=== PATIENT | male | born 1970 | race Caucasian/White ===

== ENCOUNTER 2017-03-08 11:51 | Emergency (ER) | payer OTHER ==
[2017-03-08 12:03] VITALS: BP 151/105
--- NOTE | 2017-03-08 12:22 | UC ---
Abdominal Pain Male HPI - HPI Summary HPI Summary: 19 year history with ulcerative colitis, Comes today with same symptoms of past flare rlq discomfort and diarrhea with some bisi blood present, no fevers, chills, nausea or vomiting - History of Current Complaint Chief Complaint: UCGI Stated Complaint: DIARRHEA WITH BLOOD Time Seen by Provider: 03/08/17 12:07 Hx Obtained From: Patient Onset/Duration: Sudden Onset, Still Present Timing: Constant Severity Initially: Mild Severity Currently: Moderate Location: Discrete At: RLQ Radiates: No Character: Cramping Aggravating Factor(s):: Nothing Alleviating Factor(s): Nothing Associated Signs And Symptoms: Positive: Blood in Stool, Diarrhea - Allergies/Home Medications Allergies/Adverse Reactions: Allergies Allergy/AdvReac Type Severity Reaction Status Date / Time Penicillins Allergy Hives Verified 03/08/17 11:58 PMH/Surg Hx/FS Hx/Imm Hx Previously Healthy: No GI/ History: Other Other GI/ History: ulcerative colitis - Surgical History Surgical History: Yes Surgery Procedure, Year, and Place: vasectomy - Family History Known Family History: Positive: None - Social History Occupation: Employed Full-time Lives: With Family Alcohol Use: Daily Alcohol Amount: couple beers a night Substance Use Type: None Smoking Status (MU): Never Smoked Tobacco Review of Systems Constitutional: Negative Skin: Negative Eyes: Negative ENT: Negative Respiratory: Negative Cardiovascular: Negative Gastrointestinal: Abdominal Pain, Diarrhea Genitourinary: Negative Motor: Negative Neurovascular: Negative Musculoskeletal: Negative Neurological: Negative Psychological: Negative All Other Systems Reviewed And Are Negative: Yes Physical Exam Triage Information Reviewed: Yes Appearance: Well-Appearing, No Pain Distress, Well-Nourished Vital Signs: Initial Vital Signs Temp 97.9 F 03/08/17 11:59 Pulse 75 03/08/17 11:59 Resp 16 03/08/17 11:59 BP 151/105 03/08/17 11:59 Pulse Ox 100 03/08/17 11:59 Vital Signs Reviewed: Yes Eye Exam: Normal Eyes: Positive: Conjunctiva Clear ENT Exam: Normal ENT: Positive: Normal ENT inspection, Hearing grossly normal, Pharynx normal, TMs normal. Negative: Nasal congestion, Nasal drainage, Trismus, Muffled/ hoarse voice Dental Exam: Normal Neck exam: Normal Neck: Positive: Supple, Nontender Respiratory Exam: Normal Respiratory: Positive: Chest non-tender, Lungs clear, Normal breath sounds, No respiratory distress, No accessory muscle use Cardiovascular Exam: Normal Cardiovascular: Positive: RRR, Pulses Normal, Brisk Capillary Refill Abdominal Exam: Normal Abdomen Description: Positive: No Organomegaly, Soft. Negative: CVA Tenderness (R), CVA Tenderness (L), Distended, Guarding Bowel Sounds: Positive: Present Musculoskeletal Exam: Normal Musculoskeletal: Positive: Strength Intact, ROM Intact, No Edema Neurological Exam: Normal Neurological: Positive: Alert, Muscle Tone Normal Psychological Exam: Normal Psychological: Positive: Normal Response To Family Skin Exam: Normal Abd Pain Male Course/Dx - Course Course Of Treatment: unable to afford medication used in the past will rx prednisone, reviewed case with Dr. Recinos who agrees with treatment, to ED for worsening pain, bleeding or sx, follow wi pcp and GI - Differential Dx/Clinical Impression Differential Diagnosis/HQI/PQRI: Appendicitis, Ischemic Bowel, Other - colitis, ulcerative colitis Provider Diagnoses: Ulcerative Colitis Discharge - Discharge Plan Condition: Stable Disposition: HOME Prescriptions: Mesalamine [Asacol Hd] 800 mg PO BID #60 tab predniSONE TAB* [Deltasone TAB*] 60 mg PO DAILY #42 tab Patient Education Materials: Ulcerative Colitis (ED), Abdominal Pain (ED) Referrals: [facility] [Provider Group] - 1 Week [facility]ERR[facility] [Outside] - 1 Week
== END 2017-03-08 12:34 | disposition home or self-care (01) ==
LOC: UCEAST 11:51
DX: K51.90 Ulcerative colitis, unspecified, without complications (principal); Z88.0 Allergy status to penicillin
CPT/HCPCS: 99202; G0463

== ENCOUNTER 2017-07-25 08:21 | Emergency (ER) | payer OTHER ==
[2017-07-25 08:46] VITALS: BP 153/103
--- NOTE | 2017-07-25 09:13 | UC ---
Respiratory Complaint HPI - HPI Summary HPI Summary: 2 WEEKS OF COUGH, SINUS PRESSURE, CONGESTION. FEELS TIGHT. HAS BRONCHITIS. HAS FELT WORSE OVER PAST FEW DAYS. NO FEVER, ST , EAR PAIN, N/V/D. - History of Current Complaint Chief Complaint: UCRespiratory Stated Complaint: FEVER,COUGH Time Seen by Provider: 07/25/17 09:09 Hx Obtained From: Patient Onset/Duration: Gradual Onset, Lasting Days, Still Present Timing: Constant Severity Initially: Moderate Severity Currently: Moderate Pain Intensity: 6 Pain Scale Used: 0-10 Numeric Character: Cough: Nonproductive Aggravating Factors: Nothing Alleviating Factors: Nothing Associated Signs And Symptoms: Positive: Pleuritic Chest Pain, URI, Nasal Congestion, Sinus Discomfort - Allergies/Home Medications Allergies/Adverse Reactions: Allergies Allergy/AdvReac Type Severity Reaction Status Date / Time Penicillins Allergy Hives Verified 07/25/17 08:29 Home Medications: Home Medications Cetirizine HCl [All Day Allergy] 07/25/17 [History] PMH/Surg Hx/FS Hx/Imm Hx Other GI/ History: SOLITARY KIDNEY, "COLITIS" - Surgical History Surgical History: Yes Surgery Procedure, Year, and Place: vasectomy - Family History Known Family History: Positive: Hypertension - Social History Alcohol Use: Daily Alcohol Amount: couple beers a night Substance Use Type: None Smoking Status (MU): Never Smoked Tobacco Review of Systems Constitutional: Fatigue ENT: Sore Throat, Nasal Discharge, Sinus Congestion Respiratory: Cough Cardiovascular: Negative Gastrointestinal: Negative Neurological: Headache All Other Systems Reviewed And Are Negative: Yes Physical Exam Triage Information Reviewed: Yes Appearance: No Pain Distress, Well-Nourished, Ill-Appearing - MOD Vital Signs: Initial Vital Signs Temp 99.1 F 07/25/17 08:30 Pulse 103 07/25/17 08:30 Resp 16 07/25/17 08:30 BP 153/103 07/25/17 08:30 Pulse Ox 98 07/25/17 08:30 Eyes: Positive: Conjunctiva Clear ENT: Positive: Hearing grossly normal, Pharynx normal, Nasal congestion, TMs normal Neck: Positive: Supple, Nontender, No Lymphadenopathy Respiratory Exam: Normal Cardiovascular Exam: Normal Abdomen Description: Positive: Soft Musculoskeletal: Positive: No Edema Neurological: Positive: Alert Psychological: Positive: Age Appropriate Behavior Skin: Negative: rashes UC Diagnostic Evaluation - Laboratory O2 Sat by Pulse Oximetry: 98 Respiratory Course/Dx - Differential Dx/Diagnosis Provider Diagnoses: ACUTE BRONCHITIS Discharge - Discharge Plan Condition: Stable Disposition: HOME Prescriptions: Azithromycin [Azithromycin 500 MG TAB] 500 mg PO DAILY #5 tab Guaifenesin-Codeine [Codeine/Guaifenesin 100-10 mg/5Ml] 5 - 10 ml PO Q6H PRN # 150 ml MDD 40ML PRN Reason: Cough predniSONE TAB* [Deltasone TAB*] 40 mg PO DAILY #10 tab Patient Education Materials: Acute Bronchitis (ED) Referrals: Zakia Rosen MD [Primary Care Provider] - If Needed Additional Instructions: YOUR SYMPTOMS MAY BE VIRALLY MEDIATED BUT GIVEN THE LENGTH OF TIME YOU HAVE BEEN ILL WE WILL COVER YOU WITH ANTIBIOTICS. IF YOU START THE MEDICINE BE SURE TO TAKE IT FOR THE FULL COURSE. REST, HYDRATE, OTC MEDS NEEDED. WILL ALSO TREAT WITH PREDNISONE TO HELP WITH AIRWAY INFLAMMATION AND COUGH MEDICINE. SEEK FOLLOW-UP WITH YOUR PCP IF YOU ARE NOT IMPROVING OVER THE NEXT 1-2 WEEKS.
== END 2017-07-25 09:31 | disposition home or self-care (01) ==
LOC: UCEAST 08:21
DX: J20.9 Acute bronchitis, unspecified (principal)
CPT/HCPCS: 99212; G0463

== ENCOUNTER 2018-05-21 11:28 | Emergency (ER) | payer OTHER ==
--- NOTE | 2018-05-21 11:46 | UC ---
Eye Complaint HPI - HPI Summary HPI Summary: 48 yo male presents with left eye itching, redness, and watering since this morning. He tells me that his has pink eye and he thinks he is starting to have symptoms too. He applied a drop of his 's anbx eye drops to his eye and felt better a bit later. He does not wear glasses or contacts. Denies injury to eye or FB in eye. - History of Current Complaint Stated Complaint: EYE ISSUE Time Seen by Provider: 05/21/18 11:46 Hx Obtained From: Patient Onset/Duration: Sudden Onset Severity Initially: Moderate Severity Currently: Moderate Pain Intensity: 5 Pain Scale Used: 0-10 Numeric - Allergies/Home Medications Allergies/Adverse Reactions: Allergies Allergy/AdvReac Type Severity Reaction Status Date / Time Penicillins Allergy Hives Verified 05/21/18 11:48 Home Medications: Home Medications Tobramycin 0.3% OPHTH.JAKE* 1 drop OPHTHALMIC ONCE 05/21/18 [History Confirmed ] PMH/Surg Hx/FS Hx/Imm Hx - Additional Past Medical History Additional PMH: Ulcerative Colitis - Surgical History Surgical History: Yes Surgery Procedure, Year, and Place: vasectomy - Family History Known Family History: Positive: Hypertension - Social History Occupation: Employed Full-time Lives: With Family Alcohol Use: Daily Alcohol Amount: couple beers a night Substance Use Type: None Smoking Status (MU): Never Smoked Tobacco Review of Systems Constitutional: Negative Skin: Negative Eyes: Drainage, Eye Redness ENT: Negative Respiratory: Negative Cardiovascular: Negative Neurovascular: Negative Neurological: Negative Psychological: Negative All Other Systems Reviewed And Are Negative: Yes Physical Exam - Summary Physical Exam Summary: GENERAL: WDWN. No pain distress. SKIN: No rashes, sores, lesions, or open wounds. HEENT: Head: AT/NC Eyes: EOM intact. PERRLA. LEFT EYE: Mild scleral injection. Conjunctiva with mild erythema and inflammation. Mild clear discharge. RIGHT EYE : Conjunctiva clear without inflammation or discharge. No FBs appreciated Nose: NTTP maxillary and frontal sinus. NECK: Supple. Nontender. No lymphadenopathy. CHEST: No accessory muscle use. Breathing comfortably and in no distress. CV: Pulses intact. Cap refill <2seconds NEURO: Alert. PSYCH: Age appropriate behavior. Triage Information Reviewed: Yes Vital Signs: Vital Signs: Temp Pulse Resp BP Pulse Ox 97.7 F 85 18 137/78 98 05/21/18 11:44 05/21/18 11:44 05/21/18 11:44 05/21/18 11:44 05/21/18 11:44 Vital Signs Reviewed: Yes Eye Complaint Course/Dx - Course Course Of Treatment: Left eye conjunctivitis - Differential Dx/Diagnosis Provider Diagnoses: Left eye conjunctivitis Discharge - Sign-Out/Discharge Documenting (check all that apply): Patient Departure All imaging exams completed and their final reports reviewed: No Studies - Discharge Plan Condition: Stable Disposition: HOME Prescriptions: Polymyx/Trimethoprim OPTH* [Polytrim OPHTH*] 1 drop LEFT EYE QID #1 btl Patient Education Materials: Conjunctivitis (ED) Referrals: Zakia Rosen MD [Primary Care Provider] - Additional Instructions: If you develop a fever, shortness of breath, chest pain, new or worsening symptoms - please call your PCP or go to the ED. - Billing Disposition and Condition Condition: STABLE Disposition: Home
[2018-05-21 11:48] VITALS: BP 137/78
== END 2018-05-21 12:10 | disposition home or self-care (01) ==
LOC: UCEAST 11:28
DX: H10.9 Unspecified conjunctivitis (principal); Z88.0 Allergy status to penicillin
CPT/HCPCS: 99212; G0463

== ENCOUNTER 2018-10-17 09:45 | Emergency (ER) | payer OTHER ==
--- OUTSIDE RECORDS SUMMARY | 2018-10-17 09:51 | XMS REPORT | Continuity of Care Document ---
:1970 External Reference #:[id number] Author Name Marylou Dial PA-C Address [address] [place] [address] [place] [address] Care Team Providers Name Role Phone Fernando Tineo MD Care Team Information Shingles Roofer Helper Unavailable Fernando Tineo MD Primary Care Physician Unavailable Payers Date Identification Numbers Payment Provider Subscriber Policy Number: [id number] Laura Evans Group Number: [id number] [address] PayID: [id number] [place] [address] Advance Directives Description No Information Available Problems Date Description Provider Status Onset: 10/11/2018 Ulcerative colitis Marylou Dial PA-C Active Onset: 10/02/2018 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 Family History Description No Information Available Social History Type Date Description Comments Sex Unknown ETOH Use Consumes 2 beers per day ETOH Use Consumes liquor once daily Tobacco Use Start: Unknown Patient has never smoked Smoking Status Reviewed: 10/02/18 Patient has never smoked Allergies, Adverse Reactions, Alerts Date Description Reaction Status Severity Comments 03/15/2017 Penicillin Active Medications Medication Date Status Form Strength Qnty SIG Indications Ordering Provider Mesalamine Active Tablets DR 1.2gm 180tab take 2 Jeannette 019 s tablets by Cesar mouth once MD medina a day VSL#3 Active Capsules 60caps take twice Orly 017 daily by abilio Morrow [employer] Mesalamine Hx Tablets DR 1.2gm 180tab Take 2 Jeannette 019 - s Tablets By Cesar Abilio haney MD 019 Once Daily Lialda Hx Tablets DR 1.2gm 180tab take 2 Marylou L. 017 - s tablets by Jayro, mouth once NEGRITO 019 daily Colyte-Flavor Hx Solution 240gm 4000ml As K51.911 Orly Packs 017 - Rec directed [place], [employer]C 017 Prednisone 00/00/0 Hx Tablets 20mg as Unknown 000 - directed 017 Lialda 00/00/0 Hx 2 a day Unknown 000 - 017 Immunizations Description No Information Available Vital Signs Date Vital Result Comment 10/02/2018 10:42am Height 71 inches 5'11" Weight 221.00 lb BP Systolic 160 mmHg BP Diastolic 94 mmHg Heart Rate 68 /min BMI (Body Mass Index) 30.8 kg/m2 09/12/2017 12:57pm Height 71 inches 5'11" Weight 230.00 lb BP Systolic 140 mmHg BP Diastolic 100 mmHg Heart Rate 76 /min BMI (Body Mass Index) 32.1 kg/m2 06/25/2017 12:48pm Height 71 inches 5'11" Weight 239.00 lb BP Systolic 140 mmHg BP Diastolic 100 mmHg Heart Rate 74 /min BMI (Body Mass Index) 33.3 kg/m2 04/23/2017 1:34pm Height 71 inches 5'11" Weight 234.00 lb BP Systolic 160 mmHg BP Diastolic 100 mmHg Heart Rate 96 /min BMI (Body Mass Index) 32.6 kg/m2 03/15/2017 1:05pm Height 71 inches 5'11" Weight 236.00 lb BP Systolic 150 mmHg BP Diastolic 120 mmHg Heart Rate 64 /min BMI (Body Mass Index) 32.9 kg/m2 Results Test Date Facility Test Result H/L Range Note CBC W/Auto 10/02/2018 [facility] Blood 4.8 3/UL 4.8-10.8 Differential [address] Count Ser (!) [place] [address] Auto CNT [phone] RBC Red Blood Count 5.00 X106/UL 4.20-6.20 Hemoglobin Blood 16.1 g/dL 12.0-18.0 Hematocrit 46.5 % 35-52 MCV (Corpuscular Volume) 93.0 FL 79-97 MCH (Corpuscular Hemoglobin) 32.2 pg High 27-31 MCHC (Corpuscular Hemog Conc) 34.6 g/dL 32.0-36.0 RDW 11.5 % 10.5-15.0 Platelet Count Blood Auto CNT 205 X103/UL 150-450 MPV 8.3 FL 7.4-10.4 Lymph% 38.5 % 20.0-45.0 Deuel% 3.0 % 1.0-9.0 Neutrophil % 58.5 % 38.0-83.0 Absolute Lymphocytes 1.8 X103/UL 1.0-4.8 Absolute Monocytes 0.1 X103/UL 0.0-0.8 Absolute Neutrophils 2.8 X103/UL 1.5-7.7 Comp Metabolic Panel 10/02/2018 [facility] Sodium 138 mmol/L N 135-145 Potassium 4.1 mmol/L N 3.5-5.0 Chloride 104 mmol/L N 101-111 Co2 Carbon Dioxide 27 mmol/L N 22-32 Anion Gap 7 mmol/L N 2-11 Glucose 103 mg/dL High 70-100 Blood Urea Nitrogen 11 mg/dL N 6-24 Creatinine 0.82 mg/dL N 0.67-1.17 BUN/Creatinine Ratio 13.4 N 8-20 Calcium 9.4 mg/dL N 8.6-10.3 Total Protein 7.0 g/dL N 6.4-8.9 Albumin 4.7 g/dL N 3.2-5.2 Globulin 2.3 g/dL N 2-4 Albumin/Globulin Ratio 2.0 N 1-3 Total Bilirubin 1.60 mg/dL High 0.2-1.0 Alkaline Phosphatase 65 U/L N 34-104 Alt 30 U/L N 7-52 Ast 21 U/L N 13-39 Egfr Non- 101.1 >60 Egfr 122.4 >60 1 CBC W/Auto 09/12/2017 [facility] White 5.2 3/UL 4.8- 10.8 Differential(!) [address] [facility] [place] [address] Count Ser [phone] Auto CNT RBC Red Blood Count 5.08 X106/UL 4.20-6.20 Hemoglobin Blood 15.7 g/dL 12.0-18.0 Hematocrit 46.9 % 35-52 MCV (Corpuscular Volume) 92.4 FL 79-97 MCH (Corpuscular Hemoglobin) 30.9 pg 27-31 MCHC (Corpuscular Hemog Conc) 33.4 g/dL 32.0-36.0 RDW 12.8 % 10.5-15.0 Platelet Count Blood Auto CNT 173 X103/UL 150-450 MPV 8.9 FL 7.4-10.4 Lymph% 37.4 % 20.0-45.0 Deuel% 12.2 % High 1.0-9.0 Neutrophil % 50.4 % 38.0-83.0 Absolute Lymphocytes 1.9 X103/UL 1.0-4.8 Absolute Monocytes 0.6 X103/UL 0.0-0.8 Absolute Neutrophils 2.6 X103/UL 1.5-7.7 BMP W/O Egfr(!) 09/12/2017 [facility] Sodium(!) 136 mEq/L 120-161 [address] [place] [address] [phone] Potassium(!) 4.0 mEq/L 3.6-5.5 Chloride Serum/Plasma(!) 100 mEq/L 94-112 Carbon Dioxide Ser/Plasm(!) 26 mEq/L 21-33 BUN - Urea Nitrogen(!) 13 mg/dL 6-24 Calcium Ser/Plasma Mass/Vol(!) 8.8 mg/dL 8.6-10.2 Creatinine Serum Mass/Vol(!) 0.8 mg/dL 0.5-1.4 Glucose Serum(!) 99 mg/dL 70-105 CBC W/Auto 06/25/2017 [facility] White 5.6 3/UL 4.8- 10.8 Differential(!) [address] [facility] [place] [address] Count Ser [phone] Auto CNT RBC Red Blood Count 4.93 X106/UL 4.20-6.20 Hemoglobin Blood 16.0 g/dL 12.0-18.0 Hematocrit 46.6 % 35-52 MCV (Corpuscular Volume) 94.6 FL 79-97 MCH (Corpuscular Hemoglobin) 32.6 pg High 27-31 MCHC (Corpuscular Hemog Conc) 34.4 g/dL 32.0-36.0 RDW 12.4 % 10.5-15.0 Platelet Count Blood Auto CNT 182 X103/UL 150-450 MPV 9.1 FL 7.4-10.4 Lymph% 34.5 % 20.0-45.0 Deuel% 4.7 % 1.0-9.0 Neutrophil % 60.8 % 38.0-83.0 Absolute Lymphocytes 1.9 X103/UL 1.0-4.8 Absolute Monocytes 0.3 X103/UL 0.0-0.8 Absolute Neutrophils 3.4 X103/UL 1.5-7.7 BMP W/O Egfr(!) 06/25/2017 [facility] Sodium(!) 140 mEq/L 201-[address] [place] [address] [phone] Potassium(!) 4.4 mEq/L 3.6-5.5 Chloride Serum/Plasma(!) 102 mEq/L 94-112 Carbon Dioxide Ser/Plasm(!) 28 mEq/L 21-33 BUN - Urea Nitrogen(!) 10 mg/dL 6-24 Calcium Ser/Plasma Mass/Vol(!) 9.2 mg/dL 8.6-10.2 Creatinine Serum Mass/Vol(!) 0.8 mg/dL 0.5-1.4 Glucose Serum(!) 91 mg/dL 70-105 Laboratory test 06/25/2017 [facility] Esr Sedimentation 02 MM 0-[address] [place] [address] Rate(!) [place] [address] [phone] C-Reative Protein 1.7 <5.0 BMP W/O Egfr(!) 04/23/2017 [facility] Sodium(!) 137 mEq/L [phone] [place] [address] [phone] Potassium(!) 4.0 mEq/L 3.6-5.5 Chloride Serum/Plasma(!) 106 mEq/L 94-112 Carbon Dioxide Ser/Plasm(!) 25 mEq/L 21-33 BUN - Urea Nitrogen(!) 11 mg/dL 6-24 Calcium Ser/Plasma Mass/Vol(!) 9.6 mg/dL 8.6-10.2 Creatinine Serum Mass/Vol(!) 0.8 mg/dL 0.5-1.4 Glucose Serum(!) 126 mg/dL High 70-105 Laboratory test 04/10/2017 [facility] Surgical Interface SEE RESULT BELOW 2, 3 finding Order 1 Because ethnic data is not always readily available, this report includes an eGFR for both -Americans and non- Americans. The National Kidney Disease Education Program (NKDEP) does not endorse the use of the MDRD equation for patients that are not between the ages of 18 and 70, are , have extremes of body size, muscle mass, or nutritional status, or are non- or non-. According to the National Kidney Foundation, irrespective of diagnosis, the stage of the disease is based on the level of kidney function: Stage Description GFR(mL/min/1.73 m(2)) 1 Kidney damage with normal or decreased GFR 90 2 Kidney damage with mild decrease in GFR 60-89 3 Moderate decrease in GFR 30-59 4 Severe decrease in GFR 15-29 5 Kidney failure <15 (or dialysis) 2 [id number] 3 SEE RESULT BELOW Name: CHRISTIANO EVANS [place] : [address]: Vivien Girard DO Acct: [id number] Unit: [id number] AGE: 46 Location: [facility] Re04/10/17 SEX: M Status: DEP REF SPEC: [id number] GLEN: 04/10/17-[address]: Vivien Girard DO REQ: [id number] RECD: 04/10/172708 STATUS: SOUT _ ORDERED: LEVEL 4/7 COMMENTS: [id number] FINAL DIAGNOSIS 1. Terminal ileum, biopsy: -- Benign small intestinal mucosa with no significant pathologic abnormalities. 2. Colon, cecum, biopsy: -- Benign colonic mucosa with no significant pathologic abnormalities. 3. Colon, ascending, biopsy: -- Mild chronic, inactive colitis. -- Dysplasia is absent. -- Granulomata are not seen. 4. Colon, transverse, biopsy: -- Benign colonic mucosa with no significant pathologic abnormalities. 5. Colon, descending, biopsy: -- Benign colonic mucosa with no significant pathologic abnormalities. 6. Colon, sigmoid, biopsy: -- Mild chronic, focally active colitis. -- Dysplasia is absent. -- Granulomata are not seen. 7. Colon, rectum, biopsy: -- Mild chronic, inactive colitis. -- Dysplasia is absent. -- Granulomata are not seen. CONTINUED ON NEXT PAGE * ML=Testing performed at Main Lab DEPARTMENT OF PATHOLOGY, [address] [place] [address] John Paul Schulz M.D. Director [facility] # [id number] RUN DATE: 04/11/17 [facility] LAB LIVE PAGE 2 Patient: CHRISTIANO EVANS [place] [id number] (Continued) CLINICAL HISTORY (Continued) CLINICAL HISTORY 46 year old male with history of ulcerative colitis since 1999, went into remission with Asacol and stopped meds. Had a flare and was treated with Prednisone with resolution of symptoms and intermittent rectal bleeding. PRE-OPERATIVE DIAGNOSIS Rule out inflammatory bowel disease POST-OPERATIVE DIAGNOSIS Mild colitis from 30 cm - 20cm of sigmoid with biopsy; normal appearing cecum , ascending colon, transverse colon, descending colon and rectum with biopsies; normal appearing terminal ileum with biopsies and good colonoscopy prep. GROSS DESCRIPTION 1. The specimen is received in formalin labeled, Biopsies of Terminal Ileum to Rule out IBD, and consists of two speckled mckee-brown irregular to polypoid soft tissue fragments measuring 0.5 x 0.3 x 0.2 cm and 0.7 x 0.2 x 0.1 cm, which are entirely submitted in one cassette. 2. The specimen is received in formalin labeled, Biopsies Cecum to Rule out IBD, and consists of a 0.5 x 0.2 x 0.1 cm mckee-white irregular to polypoid soft tissue fragment, which is entirely submitted in one cassette. 3. The specimen is received in formalin labeled, Biopsies Ascending Colon to Rule out IBD, and consists of a 0.6 x 0.5 by up to 0.2 cm aggregate of mckee-brown irregular to polypoid soft tissue fragments, which is entirely submitted in one cassette. 4. The specimen is received in formalin labeled, Biopsies Transverse Colon to Rule out IBD, and consists of four speckled mckee-pink irregular to polypoid soft tissue fragments aggregating 0.8 x 0.7 by up to 0.2 cm, which are entirely submitted in one cassette. 5. The specimen is received in formalin labeled, Biopsies Descending Colon to Rule out IBD, and consists of three speckled mckee-white irregular to polypoid soft tissue fragments ranging from 0.3 x 0.2 x 0.1 cm to 0.5 x 0.2 x 0.1 cm, which are entirely submitted in one cassette. 6. The specimen is received in formalin labeled, Biopsies Sigmoid Colon to Rule out IBD, and consists of two mckee-red irregular to polypoid soft tissue fragments measuring 0.2 x 0.1 CONTINUED ON NEXT PAGE * ML=Testing performed at Main Lab DEPARTMENT OF PATHOLOGY, [address] [place] [address] John Paul Schulz M.D. Director [facility] # [id number] RUN DATE: 04/11/17 [facility] LAB LIVE PAGE 3 Patient: CHRISTIANO EVANS [id number] (Continued) GROSS DESCRIPTION (Continued) GROSS DESCRIPTION (Continued) x 0.1 cm and 0.4 x 0.3 x 0.2 cm, which are entirely submitted in one cassette. 7. The specimen is received in formalin labeled, Biopsies Rectum to Rule out IBD, and consists of a 0.7 x 0.2 by up to 0.2 cm speckled mckee-brown irregular to polypoid soft tissue fragment, which is entirely submitted in one cassette. Signed (signature on file) Chanel Ramos MD [id number] END OF REPORT * ML=Testing performed at Main Lab DEPARTMENT OF PATHOLOGY, [address] [place] [address] John Paul Schulz M.D. Director [facility] # [id number] Procedures Description No Information Available Encounters Type Date Location Provider Dx Diagnosis Office Visit 09/12/2017 [place] [id number] Ulcerative (chronic) 1:[facility]p [facility], rectosigmoiditis [employer] without complications Office Visit 06/25/2017 [facility] K51.30 Ulcerative (chronic) 1:00p [facility], rectosigmoiditis [employer] without complications Office Visit 04/23/2017 [place] [id number] Ulcerative (chronic ) 1:45p [facility], rectosigmoiditis with [employer] rectal bleeding Office Visit 03/15/2017 [place] [id number] Ulcerative colitis, 1:00p [facility], unspecified with [employer] rectal bleeding Plan of Treatment Future Appointment(s):10/29/2018 8:30 am - Laboratory at [facility]10/02/2018 - [place]-CK51.30 Ulcerative ( chronic) rectosigmoiditis without complications
[2018-10-17 09:55] VITALS: BP 144/95
--- NOTE | 2018-10-17 10:42 | UC ---
Throat Pain/Nasal Blane HPI - HPI Summary HPI Summary: 48 y/o male presents to the urgent care c/o sinus pressure, congestion, w/ green nasal discharge and Moderate PND. Pt reports symptoms worsen last when he developed a dry cough and mild SOB last night. He couldn't sleep last night due to cough. Sinus pain today is 3/10. he has been taking OTC w/o any improvement. Pt denies fever, SOB, dizziness, chest pain, abdominal pain, N/V/D. - History of Current Complaint Chief Complaint: UCGeneralIllness Stated Complaint: SINUS ISSUE CHEST CONGESTION Time Seen by Provider: 10/17/18 10:35 Hx Obtained From: Patient Onset/Duration: Gradual Onset, Lasting Weeks - 1 week, Still Present, Worse Since - yesterday Severity: Moderate Pain Intensity: 3 Pain Scale Used: 0-10 Numeric Cough: Nonproductive Associated Signs & Symptoms: Positive: Sinus Discomfort, Nasal Discharge - yellowish. Negative: Wheezing - Epiglottits Risk Factors Epiglottis Risk Factors: Negative - Allergies/Home Medications Allergies/Adverse Reactions: Allergies Allergy/AdvReac Type Severity Reaction Status Date / Time Penicillins Allergy Hives Verified 10/17/18 09:55 PMH/Surg Hx/FS Hx/Imm Hx Previously Healthy: Yes Other GI/ History: Ulcerative colitis - Surgical History Surgical History: Yes Surgery Procedure, Year, and Place: vasectomy - Family History Known Family History: Positive: None, Hypertension - Social History Occupation: Employed Full-time Lives: With Family Alcohol Use: Daily Alcohol Amount: couple beers a night Substance Use Type: None Smoking Status (MU): Never Smoked Tobacco Review of Systems All Other Systems Reviewed And Are Negative: Yes Constitutional: Positive: Negative Skin: Positive: Negative ENT: Positive: Nasal Discharge - yellowish, Sinus Congestion, Sinus Pain/ Tenderness, Other - PND Respiratory: Positive: Cough - dry Cardiovascular: Positive: Negative Gastrointestinal: Positive: Negative Genitourinary: Positive: Negative Motor: Positive: Negative Neurovascular: Positive: Negative Musculoskeletal: Positive: Negative, Calf Tenderness Psychological: Positive: Negative Is Patient Immunocompromised?: No Physical Exam - Summary Physical Exam Summary: Vitals: reviewed General: Well developed, well-nourished obese male patient with NAD. Head and face: Normocephalic and atraumatic, Positive tenderness over the frontal and maxillary sinuses.. Eyes: PERRLA, EOMI x 2. Normal conjunctiva. No eye discharge. ENT: Ears and TM with normal limits. Nose: edematous and erythematous nasal mucosa with with yellowish discharge and erythematous mucosa. Pharynx with erythema, no exudate. +moderate PND Neck: Supple, no JVD, no carotid bruits and no lymphadenopathy. Lungs: clear, no rales, no rhonchi, no wheezes. CVS: RRR, S1 and S2 present no murmurs or gallops appreciated. Abdomen: soft nontender with positive bowel sounds. Extremities: no edema noted. Neuro: WNL. Skin: warm and dry Triage Information Reviewed: Yes Vital Signs: Initial Vital Signs Temp 97.8 F 10/17/18 09:52 Pulse 90 10/17/18 09:52 Resp 18 10/17/18 09:52 BP 144/95 10/17/18 09:52 Pulse Ox 97 10/17/18 09:52 Throat Pain/Nasal Course/Dx - Course Course Of Treatment: 48 y/o male presents to the urgent care c/o sinus pressure, congestion, w/ green nasal discharge and Moderate PND. Pt reports symptoms worsen last when he developed a dry cough and mild SOB last night. He couldn't sleep last night due to cough. Sinus pain today is 3/10. he has been taking OTC w/o any improvement. Pt denies fever, SOB, dizziness, chest pain, abdominal pain, N/V/ D. Hx obtained. Pt with 1 week of symptoms getting worse. Pt is PCN allergic . Rx Doxycyline PO and flonase nasal spray. Tessalon PO and albuterol inhaler to alleviate cough. Discharge instructions explained to Pt. Pt advised to returne to the clinic or f/u w/ his PCP if not improvement of symptoms since he has Hx of recurrent sinusitis. Pt's BP is elevated today advised to decrease salt in diet, monitor BP and f/u with PCP for further management.D/C instructions explained. Pt understood and agreed with plan of care. - Differential Dx/Diagnosis Differential Diagnosis/HQI/PQRI: Influenza, Laryngitis, Sinusitis, Tonsillitis, URI Provider Diagnosis: Acute bacterial sinusitis, Cough, Elevated BP without diagnosis of hypertension Discharge - Sign-Out/Discharge Documenting (check all that apply): Patient Departure - D/c home All imaging exams completed and their final reports reviewed: No Studies - Discharge Plan Condition: Stable Disposition: HOME Prescriptions: Albuterol HFA INHALER* [Ventolin HFA Inhaler*] 1 - 2 puff INH Q6H PRN #1 mdi PRN Reason: Cough Benzonatate CAP* [Tessalon 100 MG CAP*] 100 mg PO TID PRN #21 cap PRN Reason: Cough DOXYcycline CAP(*) [DOXYcycline 100MG CAP(*)] 100 mg PO BID #20 cap Fluticasone NASAL SPRAY 50MCG* [Flonase NASAL SPRAY 50MCG*] 2 spray BOTH NARES DAILY #1 btl Patient Education Materials: Sinusitis (ED), Low-Sodium Diet (ED) Referrals: Zakia Rosen MD [Primary Care Provider] - 3 Days Additional Instructions: 1- Please increase fluid intake and rest. take full course of antibiotic to avoid resistance. Take Yogurt w/ probiotics or Culturelle to protect your GI system. 2-Use Flonase as directed to help drain fluid. Also buy saline drops to clear sinuses 3-Take Tessalon tabs PO and use Albuterol inhaler w/ Aerochamber to alleviate cough. Increase fluid intake and rest, avid strenuous exercise. 4-Return to the clinic or PCP if symptoms 3 dyas do not improve for further management and treatment 5- Your BP is elevated today. please decrease salt in your diet, monitor BP and if it continues to be elevated please f/u with your PCP for further management. - Billing Disposition and Condition Condition: STABLE Disposition: Home
== END 2018-10-17 11:00 | disposition home or self-care (01) ==
LOC: UCEAST 09:45
DX: J01.90 Acute sinusitis, unspecified (principal); B96.89 Other specified bacterial agents as the cause of diseases classified elsewhere; R05 Cough; R03.0 Elevated blood-pressure reading, without diagnosis of hypertension; K51.90 Ulcerative colitis, unspecified, without complications; Z88.0 Allergy status to penicillin
CPT/HCPCS: 99212; G0463

== ENCOUNTER 2019-03-28 06:16 | Inpatient (IN) | payer OTHER ==
[~2019-03-28 06:16] MED LIST: Buffered Lidocaine 1% SYRIN* 1 ML/SYRINGE INTRADERM ONE; CIPROFLOXACIN 400 MG ONE; Clindamycin 900 MG/D5W BAG(*) 900 MG/50 ML BAG IVPB ONE; Dexamethasone IV* 4 MG/ML 1 ML (4 MG) IV SLOW PU ONE; Dexamethasone IV* 4 MG/ML 1 ML (4 MG) ONE; Famotidine IV* 10 MG/ML 2 ML (20 mg) IV ONE; Famotidine IV* 10 MG/ML 2 ML (20 mg) ONE; IVPREMIX ONE; Lactated Ringers 1000 ML Bag* 1,000 ML IV SCH
[2019-03-28] MEDS ORDERED: Bupivacaine 0.25% SDV PF* 10 ML VIAL INJ ONE ×2 (08:02→17:01)
[2019-03-28] MEDS ORDERED: Lidocaine 1% INJ* 10 MG/ML 30 ML SDV ONE (08:02)
[2019-03-28] MEDS ORDERED: Succinylcholine* 20 MG/ML 10 ML VIAL ONE (08:22)
[2019-03-28] MEDS ORDERED: Propofol* 10 MG/ML 20 ML BTL ONE (08:22)
[2019-03-28] MEDS ORDERED: Lidocaine 2% PF * 5 ML VIAL ONE (08:23)
[2019-03-28] MEDS ORDERED: fentaNYL* 50 MCG/ML 5 ML VIAL (250 MCG VIAL) ONE (08:25)
[2019-03-28] MEDS ORDERED: Midazolam* 1 MG/ML 5 ML VIAL (5 MG) ONE (08:25)
[2019-03-28] MEDS ORDERED: DiMENhydriNATE IV* 50 MG/ML VIAL IV PUSH PRN (10:11)
[2019-03-28] MEDS ORDERED: Naloxone* 0.4 MG/ML 1 ML VIAL IV PRN (10:11)
[2019-03-28] MEDS ORDERED: Acetaminophen IV 1GM/100ML * 1,000 MG/100 ML VIAL IVPB ONE (10:11)
[2019-03-28] MEDS ORDERED: Clindamycin 900 MG/D5W BAG(*) 900 MG/50 ML BAG IVPB ONE (15:15)
[2019-03-28] MEDS ORDERED: fentaNYL* 50 MCG/ML 2 ML VIAL (100 MCG VIAL) ONE ×2 (17:43→18:54)
[2019-03-28] MEDS ORDERED: Acetaminophen IV 1GM/100ML * 100 ML ONE (17:43)
[2019-03-28] MEDS: fentaNYL* 50 MCG/ML 2 ML VIAL (100 MCG VIAL) IV PRN ×3 (17:44→18:56)
[2019-03-28] MEDS ORDERED: Acetaminophen TAB* 325 MG PO PRN (17:48)
[2019-03-28] MEDS ORDERED: Ondansetron INJ* 2 MG/ML VIAL IV PRN (17:48)
--- NOTE | 2019-03-28 17:48 | BRIEFOPN ---
Brief Operative/Procedure Note - Operation Details Pre-Op Diagnosis: metastatic papillary thyroid cancer Post-Op Diagnosis: metastatic papillary thyroid cancer Procedures: total thyroidectomy, bilateral central neck dissection, right lateral neck dissection Surgeon(s)/Proceduralists: Hector Chaney Jonathan Cryer Anesthesia: GETA Estimated Blood Loss: 20cc Findings: enlarged right thyroid lobe, grossly metastatic lymph nodes on right, small right lateral neck lymph node disease Specimen(s)/Culture(s) Description: right thyroid lobe, left thyroid lobe, right and left central neck lymph node packets, right lateral neck dissection Complications: none
[2019-03-28] MEDS ORDERED: DiMENhydriNATE IV* 50 MG/ML VIAL ONE (18:48)
[2019-03-28] MEDS: Calcium Carbonate TAB* 1250 MG (CALCIUM 500 MG) PO SCH (19:37)
[2019-03-28] MEDS: Lactated Ringers 1000 ML Bag* 1,000 ML IV SCH (20:19)
[2019-03-28] MEDS: Calcitriol CAP* 0.25 MCG PO SCH (20:35)
[2019-03-28] MEDS: Heparin VIAL(*) 5000 UNITS/ML VIAL (FIVE THOUSAND) SUBCUT SCH (20:35)
[2019-03-28] MEDS: oxyCODONE/Acetamin 5/325 MG* TAB PO PRN (20:36)
--- NOTE | 2019-03-28 23:48 | OP ---
DATE OF OPERATION: 03/28/19 - ROOM #338 DATE OF : 74 SERVICE: General Surgery. SURGEON: Naida Whitten MD ASSISTANTS: 1. Dr. Hector Frost. 2. PARIS Presley. 3. Dr. Fred Veloz. ANESTHESIOLOGIST: Dr. Deyvi Reid. ANESTHESIA: General endotracheal anesthesia. PRE-OP DIAGNOSIS: Metastatic right papillary thyroid carcinoma. POST-OP DIAGNOSIS: Metastatic right papillary thyroid carcinoma. OPERATIVE PROCEDURE: Total thyroidectomy, bilateral central neck dissection, right lateral neck dissection. INDICATIONS: Mr. Maravilla is a very pleasant 48-year-old gentleman with a history of ulcerative colitis who had presented with a palpable right thyroid nodule and , during workup was found to have a right-sided papillary thyroid carcinoma that had metastasized to both the central neck as well as the right lateral neck. Therefore, he gave informed consent for total thyroidectomy, bilateral central neck dissection, and right lateral neck dissection. He understood the risks of the surgery, which included but were not limited to, bleeding, infection, hypoparathyroidism, injury to nearby structures including the possibility of injury to the recurrent laryngeal nerves and the right lateral neck nerves that included the phrenic nerve, spinal accessory nerve, and vagus nerve. He understood all these things and wished to proceed. ESTIMATED BLOOD LOSS: Approximately 20 cc. SPECIMENS: Right thyroid lobe, left thyroid lobe, right central neck lymph node packet, left central neck lymph node packet, right lateral neck dissection. DRAINS: MARTY x1. DESCRIPTION OF PROCEDURE: The patient was brought back to the operating room and placed on the operating table in a supine position. Sequential compression devices were placed in the bilateral lower extremities for DVT prophylaxis. Antibiotic with clindamycin was administered because the patient had a PENICILLIN allergy. General endotracheal anesthesia was induced. A Campbell catheter was placed and the electrodes for the nerve monitor were attached. A time-out was performed prior to administering the local anesthesia to the neck, which consisted of 0.25% Marcaine and 1% lidocaine. After this was done, the neck was prepped and draped in normal sterile fashion. An additional time-out was performed verifying the patient's name, MR number, and the procedure to be performed. After this, an approximately 5-cm incision was made in the anterior neck in the natural crease line approximately 3 finger-breadths above the sternal notch. The skin was divided down to the subcutaneous tissue. The platysma was divided and the inferior and superior subplatysmal flaps had been developed. The median raphe between the strap muscles was identified and the strap muscles were retracted laterally off the isthmus of the thyroid. The isthmus was divided at the midline over the trachea. After this was done, attention was turned towards removing the right thyroid lobe given that this was the side where the malignancy was identified. The medial attachments of the right thyroid lobe to the trachea were divided using a LigaSure. The space of Mills between the cricothyroid muscle and the upper pole and the superior pole vessels was developed and divided, and after this was done, attention was turned towards bluntly developing the space lateral to the right thyroid lobe. Of note, he had had several adhesions to the right thyroid lobe making this dissection somewhat difficult. He had had multiple biopsies on the right side and this was likely why there were many adhesions on the side. With some difficulty, the right superior pole vessels were divided using a combination of LigaSure and 2-0 silk ties. Once this was taken down, the thyroid was able to be rotated medially and anteriorly out of the neck. With great difficulty, the recurrent laryngeal nerve was eventually identified. The many adhesions of the muscles to the right thyroid lobe made this identification difficult. Next the nerve was dissected out in its entirety and where it entered into the cricothyroid muscle. Once this was done, the right upper parathyroid was identified and biopsied to confirm that it was indeed the parathyroid gland and then after this was done, the right thyroid lobe was taken off from the trachea using LigaSure with great care to avoid injury to the recurrent laryngeal nerve. After this was done, attention was turned towards performing the central neck dissection on the right side. The patient previously had biopsies of what appeared to be a central neck lymph node that was positive for papillary thyroid carcinoma. There were several lymph nodes evident of metastatic disease in the level 6 compartment. There were several hard nodules as well as darkened ones. This lymph node packet was dissected off the recurrent laryngeal nerve. One lymph node was thought to be a parathyroid and biopsied as positive for a a lymph node. Therefore, this was also removed separately. The remaining central neck packet was removed en bloc and taken off the table as specimen. After this was done, hemostasis was obtained. Attention was turned towards removing the lateral left thyroid lobe. In the similar fashion to the right thyroid lobe, the medial attachments were divided using LigaSure, the space of Mills was developed, and then the lateral space was also very easily developed with a blunt dissection. The middle thyroid vein was identified and divided. The superior pole vessels were taken down using a combination of LigaSure and 2-0 silk ties and once this was done, the left lobe was able to be easily rotated medially out of the neck. The recurrent laryngeal nerve was easily identified both visually and with the assistance of the nerve monitor. The left upper parathyroid was also identified and preserved on its pedicle. After this, the left thyroid lobe was then removed off the trachea using LigaSure and taken off the table as specimen after marking the upper lobe. Attention was then turned towards performing the central neck dissection, the central neck lymph nodes in level 6 surrounding the recurrent laryngeal nerve were dissected off the recurrent laryngeal nerve and removed en bloc and taken off the table as specimen. With Dr. Veloz's assistance, the right lateral neck dissection was then performed. The incision was extended on the right side in a hockey-stick fashion towards the angle of the mandible. The skin was divided down to the subcutaneous tissue. The platysma was divided. The superior and inferior subplatysmal flaps were then developed and once this was done, the submandibular gland was identified. The hypoglossal nerve was identified and the dissection was carried from level 2 through 4, and at level 2 the spinal accessory nerve was identified. Its course was traced out and it was protected. After this, the level 2 through 4 lymph nodes were dissected off the internal jugular vein. Some of the more posterior level 5 lymph nodes were also dissected out and removed en bloc with the specimen. Once the lymph node packet was removed in its entirety, it was carried off the table as specimen. Of note, there was one abnormal lymph node identified pre-operatively and biopsied positive for PTC. This was identified during this lymph node dissection. The node was a small palpable abnormality just posterior to the SCM. Of note, during this lateral neck dissection, care was taken to avoid any injury to the vagus nerve as also the phrenic nerve. After the lymph node packet was removed, hemostasis was obtained in both the right lateral neck and the central neck bilaterally. Tisseel was placed into the spaces. #7 MARTY drain was placed into the right lateral neck and secured to the skin with a silk suture. Then, attention was turned towards closure. The platysma was reapproximated using interrupted 4-0 Vicryl sutures and the skin was reapproximated using a running 4-0 Monocryl suture. Sterile dressing was then placed. The patient's anesthesia was reversed. The Campbell catheter was removed. He was taken to the PACU in stable condition. At the end of the count , a surgical debriefing was performed and all counts were correct. I was present during the entirety of the case. [id number]/[facility] #: [id number] MTDD
[2019-03-29] MEDS: oxyCODONE/Acetamin 5/325 MG* TAB PO PRN ×5 (00:39→21:52)
[2019-03-29] MEDS: Calcium Carbonate TAB* 1250 MG (CALCIUM 500 MG) PO SCH ×5 (00:39→23:33)
[2019-03-29] MEDS ORDERED: Fluticasone NASAL SPRAY 50MCG* 16 gm SPRAY BTL BOTH NARES PRN (01:03)
[2019-03-29] MEDS: Levothyroxine TAB* 100 MCG TAB PO SCH (05:26)
[2019-03-29] MEDS: HYDROmorphone INJ1* 1 MG/ML SYRINGE IV SLOW PU PRN ×3 (08:33→15:26)
[2019-03-29] MEDS: Calcitriol CAP* 0.25 MCG PO SCH ×3 (09:18→21:52)
[2019-03-29] MEDS: Heparin VIAL(*) 5000 UNITS/ML VIAL (FIVE THOUSAND) SUBCUT SCH ×2 (09:18→21:54)
[2019-03-29] MEDS: PTO:Mesalamine (NF) 1.2 GM TAB PO SCH (09:19)
[2019-03-29] MEDS: Lactated Ringers 1000 ML Bag* 1,000 ML IV SCH (09:29)
[2019-03-29] MEDS ORDERED: Benzocaine/Menthol LOZ* 1 LOZENGE PO PRN (10:45)
--- NOTE | 2019-03-29 10:45 | PN ---
Progress Note - Progress Note Date of Service: 03/29/19 Note: Surgery Progress Note S: Patient complaints of 7/10 throat pain when he swallows and some general discomfort around his neck. He was in significant pain this morning and said dilaudid helped. He has been ambulating, eating, urinating without difficulty. No tingling or numbness. His left arm is somewhat stiff and cannot be fully extended at the elbow. His also says that the left side of the mouth still droops a little. O: Vital Signs: Temp Pulse Resp BP Pulse Ox 98.4 F 61 18 125/77 98 03/29/19 07:36 03/29/19 07:36 03/29/19 10:37 03/29/19 07:36 03/29/19 07:36 Intake & Output 03/28/19 03/29/19 03/29/19 22:59 06:59 14:59 Intake Total 4300 480 1585 Output Total 1620 585 200 Balance 2680 -105 1385 Intake: IV Fluids 4100 985 LR 4100 985 Oral 200 480 600 Output: MARTY #1 20 35 Urine 550 550 200 Campbell 1000 Estimated Blood Loss 50 Other: Estimated Void Medium Laboratory Results - last 24 hr 03/28/19 03/28/19 03/29/19 17:56 17:56 05:17 Calcium 8.5 L PTH Intact 4.7 L 4.2 L Calcium (PTH Intact) 8.6 8.5 L 03/29/19 05:19 Calcium 8.2 L PTH Intact Calcium (PTH Intact) Physical exam: Head- lips appear somewhat symmetrical, possibly slightly swollen on left Neck- incision c/d/i, no swelling, no erythema. Dressing removed steris in place. MARTY drain s/s fluid and removed. Ext- normal ROM of right shoulder A/P: 48 M POD 1 from total thyroidectomy, bilateral central neck dissection, right lateral neck dissection for metastatic papillary thyroid carcinoma. - DC IVF - DC labs - MARTY drain removed today - Continue calcium carbonate and calcitriol around the clock for hypoparathyroidism. - Added IV toradol to help with pain control. I reassured patient that it is normal to have significant throat and muscle pain after neck dissection and total thyroidectomy. He will likely prefer soft and liquid food and can take throat lozenges. - Likely the lip asymmetry is from ETT. He does not appear to have facial droop on left side and no lateral dissection was done on the left. Assured patient that we can continue to monitor this. - Plan for DC tomorrow if patient's pain has improved. I discussed DC plan with patient and at length. All rx sent to [facility] pharmacy already and DC instructions in the chart. Patient will be DC'ed with calcium carbonate 2000mg TID, calcitriol 0.25mcg TID, synthroid 200mcg daily and percocet as needed for pain. He has follow up with me next Sun, 04/02. - Dr. Cosby to evaluate patient tomorrow.
[2019-03-29] MEDS: Ketorolac INJ* 30 MG/ML 1 ML VIAL IV PUSH PRN ×3 (10:53→23:33)
[2019-03-30] MEDS: Levothyroxine TAB* 100 MCG TAB PO SCH (05:37)
[2019-03-30] MEDS: Calcium Carbonate TAB* 1250 MG (CALCIUM 500 MG) PO SCH (05:37)
[2019-03-30] MEDS: oxyCODONE/Acetamin 5/325 MG* TAB PO PRN ×2 (05:37→09:51)
[2019-03-30] MEDS: Ketorolac INJ* 30 MG/ML 1 ML VIAL IV PUSH PRN (07:24)
[2019-03-30 07:33] VITALS: BP 136/90
--- NOTE | 2019-03-30 09:21 | PN ---
Progress Note - Progress Note Date of Service: 03/30/19 SOAP: Subjective: Feeling better and wants to go home. Pain controlled. Objective: Vital Signs Temp 98.1 F 03/30/19 07:24 Pulse 72 03/30/19 07:24 Resp 18 03/30/19 08:00 BP 136/90 03/30/19 07:24 Pulse Ox 96 03/30/19 08:00 Gen: NAD Neck: incision c/d/i; no swelling, erythema or ecchymosis. Drain site dry. Intake & Output 03/29/19 03/30/19 03/30/19 18:59 06:59 18:59 Intake Total 2085 860 Output Total 725 1350 Balance 1360 -490 Intake: IV Fluids 985 LR 985 Oral 1100 860 Output: Urine 725 1350 Other: Estimated Void Medium Assessment: POD#2. Stable for discharge. Plan: Home today.
[2019-03-30] MEDS: PTO:Mesalamine (NF) 1.2 GM TAB PO SCH (09:51)
[2019-03-30] MEDS: Calcitriol CAP* 0.25 MCG PO SCH (09:52)
[2019-03-30] MEDS: Heparin VIAL(*) 5000 UNITS/ML VIAL (FIVE THOUSAND) SUBCUT SCH (09:53)
--- NOTE | 2019-04-10 13:48 | DS ---
DISCHARGE SUMMARY: DATE OF ADMISSION: 03/28/19 DATE OF DISCHARGE: 03/30/19 SERVICE: General Surgery. ATTENDING SURGEON: Dr. Naida Whitten. ADMISSION DIAGNOSIS: Metastatic papillary thyroid carcinoma. DISCHARGE DIAGNOSIS: Metastatic papillary thyroid carcinoma. OPERATION: Total thyroidectomy, bilateral central neck dissection, and right lateral neck dissection. HOSPITAL COURSE: Mr. Maravilla is a very pleasant 48-year-old gentleman with a history of ulcerative colitis, who was found to have a palpable right thyroid nodule and during workup was diagnosed with metastatic papillary thyroid carcinoma. He therefore gave informed consent for total thyroidectomy, bilateral central neck dissection, and right lateral neck dissection. He underwent this operation on 03/28/19 and did very well. The operation was uneventful and his postoperative course was uneventful. On the day of discharge , on postoperative day 2, the patient was doing well. He was tolerating regular diet. He was ambulating on his own. His pain was well controlled with oral pain medications. He did, not unexpectedly, have hypoparathyroidism given his bilateral central neck dissections and on the day prior to discharge, his calcium level was 8.5 and his parathyroid hormone level was 4.2 and he was placed on supplemental calcium carbonate as well as calcitriol. On the day of discharge according to the surgeon who discharged him, Dr. Cosby, he was determined to be an appropriate candidate for discharge. DISCHARGE PHYSICAL EXAM: Vital Signs: Temperature is 98.1, pulse is 72, respiratory rate is 18, O2 sat is 96% O2 on room air, blood pressure is 136/90. Neck is clean, dry, and intact with no swelling. His MARTY drain had been removed on POD 1. DISCHARGE MEDICATIONS: 1. Calcitriol 0.25 mcg p.o. t.i.d. 2. Synthroid 200 mcg p.o. daily. 3. Percocet 5/325 mg p.o. q.6 hours p.r.n. for severe pain. 4. Calcium carbonate 2000 mg p.o. t.i.d. DISCHARGE INSTRUCTIONS: The patient was given a preprinted handout with discharge instructions. He was told that he could shower on the day of discharge and he was told to avoid any heavy lifting or strenuous exercise as well as bathing or immersing the incision in water for approximately 3 weeks. The patient was also given a postoperative appointment for the following Sunday after discharge. He was also told to follow up and obtain labs prior to his postoperative visit to recheck his calcium and parathyroid hormone levels. DISPOSITION: To home. CONDITION: Good. [id number]/[facility] #: [id number] [place]
== END 2019-03-30 10:20 | disposition home or self-care (01) | DRG 626 ==
LOC: OR 06:16 → SSU 17:48
PROVIDERS: ADMIT Surgery; ATTEND Surgery
PROC: 0GTH0ZZ Resection of Right Thyroid Gland Lobe, Open Approach (ICD-10-PCS; 2019-03-28)
PROC: 07T20ZZ Resection of Left Neck Lymphatic, Open Approach (ICD-10-PCS; 2019-03-28)
PROC: 07T10ZZ Resection of Right Neck Lymphatic, Open Approach (ICD-10-PCS; 2019-03-28)
PROC: 0GTG0ZZ Resection of Left Thyroid Gland Lobe, Open Approach (ICD-10-PCS; principal; 2019-03-28 08:30)
DX: C73 Malignant neoplasm of thyroid gland (principal); K51.90 Ulcerative colitis, unspecified, without complications; C77.0 Secondary and unspecified malignant neoplasm of lymph nodes of head, face and neck; Z79.899 Other long term (current) drug therapy; Z88.0 Allergy status to penicillin; Z91.040 Latex allergy status
CPT/HCPCS: 36415; 82310; 83970; 88305; 88307; 88331; A9270-GY; C1776; J0330; J0744; J1100; J1170; J1240; J1644; J1885; J2250; J2704; J3010; J3490